=== PATIENT | female | born 1985 | race African-American/Black ===

== ENCOUNTER 2023-12-09 13:45 | Emergency (ER) | payer MEDICARE ==
[~2023-12-09] VITALS: Ht 177.8 cm; Wt 68.2 kg
[~2023-12-09 13:45] MED LIST: DOXYCYCLINE 10100 MG PO
[2023-12-09 13:54] VITALS: TEMP 97.6
[2023-12-09] MEDS ORDERED: NS 1,000 ML IV ONE (14:45)
[2023-12-09] MEDS ORDERED: Ondansetron 4 MG/2 ML VIAL IV ONE (14:45)
[2023-12-09] MEDS ORDERED: Ketorolac 30 MG/ML VIAL IV ONE (14:45)
[2023-12-09] MEDS ORDERED: diphenhydrAMINE 50 MG/ML 1 ML VIAL IV ONE (14:45)
[2023-12-09 16:23] VITALS: BP 118/81; PULSE 62
== END 2023-12-09 16:23 | disposition home or self-care (01) ==
LOC: COL.ER 13:45
PROVIDERS: Physician Assistant
DX: G43.809 Other migraine, not intractable, without status migrainosus (principal); Z73.3 Stress, not elsewhere classified
CPT/HCPCS: J0780; J1200; J1885; J2405; J7030